=== PATIENT | male | born 1955 | race Caucasian/White ===

== ENCOUNTER 2019-01-14 09:06 | Emergency (ER) | payer MEDICARE, OTHER ==
[2019-01-14 09:14] VITALS: BP 144/97
[2019-01-14] MEDS ORDERED: Diphtheria,Pertussis(Acell),Tetanus Vaccine 0.5 ML Syringe IM ONE (09:22)
[2019-01-14] MEDS ORDERED: Lidocaine 1% 20 ML MDV INJECT ONE (09:22)
[2019-01-14] MEDS ORDERED: Lidocaine 1% 10 ML MDV ONE (09:27)
[2019-01-14] MEDS ORDERED: Lidocaine 1% 10 ML MDV INJECT ONE (09:30)
--- NOTE | 2019-01-14 09:58 | EDM.PDOC ---
ED HPI GENERAL MEDICAL PROBLEM - General Chief Complaint: Upper Extremity Injury/Pain Stated Complaint: SMASHED LT THUMB Time Seen by Provider: 01/14/19 09:15 Source of Information: Reports: Patient History Limitations: Reports: No Limitations - History of Present Illness INITIAL COMMENTS - FREE TEXT/NARRATIVE: The patient presents with left hand pain and lacerations to his thumb. 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 He has a 1cm laceration to the dorsal aspect of the left thumb and a 4cm laceration to the volar aspect of his thumb. He is right handed. He is not sure when his last tetanus was. He can move his thumb. Onset: Sudden Duration: Minutes: Location: Reports: Upper Extremity, Left (hand) Quality: Reports: Sharp Severity: Moderate Improves with: Reports: Immobilization Worsens with: Reports: Movement Context: Reports: Trauma (Crush injury to his left hand) Associated Symptoms: Reports: No Other Symptoms Left Finger-Thumb Pain Score (Numeric/FACES): 4 - Related Data Allergies Allergy/AdvReac Type Severity Reaction Status Date / Time No Known Allergies Allergy Verified 11/30/14 22:43 Home Meds: Home Meds Metoprolol Succinate [Toprol XL] 50 mg PO DAILY 03/26/14 [History] SUMAtriptan Succinate [Imitrex] 4 mg SQ ASDIRECTED 03/26/14 [History] Cephalexin [Keflex] 500 mg PO QID #28 capsule 01/14/19 [Rx] Past Medical History - Past Health History Medical/Surgical History: Denies Medical/Surgical History Cardiovascular History: Reports: Hypertension Social & Family History - Family History Family Medical History: Noncontributory - Tobacco Use Smoking Status *Q: Never Smoker - Caffeine Use Caffeine Use: Reports: Coffee - Recreational Drug Use Recreational Drug Use: No Review of Systems - Review of Systems Review Of Systems: See Below Constitutional: Reports: No Symptoms Eyes: Reports: No Symptoms Ears: Reports: No Symptoms Nose: Reports: No Symptoms Mouth/Throat: Reports: No Symptoms Respiratory: Reports: No Symptoms Cardiovascular: Reports: No Symptoms GI/Abdominal: Reports: No Symptoms Genitourinary: Reports: No Symptoms Musculoskeletal: Reports: Other (Left hand injury) ED EXAM, GENERAL - Physical Exam Exam: See Below Exam Limited By: No Limitations General Appearance: Alert, No Apparent Distress Ears: Normal External Exam Nose: Normal Inspection Head: Atraumatic, Normocephalic Neck: Carotid Bruit Respiratory/Chest: No Respiratory Distress Extremities: Other (Left hand pain upon palpation and edema to the dorsal aspect of the hand. Pain upon palpation to the left wrist. Edema and pain upon palpation to the left thumb. 1cm laceration to the dorsal aspect of the left thumb and 4cm laceration to the volar aspect of the left thumb. Good sensation distally and capillary refill.) ED TRAUMA EXTREMITY PROCEDURES - Laceration/Wound Repair Left Digit - 1st (Thumb) Lac/Wound Length In cm: 4 Appearance: Linear Distal NVT: Neuro & Vascular Intact, No Tendon Injury Anesthetic Type: Local Local Anesthesia - Lidocaine (Xylocaine): 1% Plain Skin Prep: Saline Exploration/Debridement/Repair: Wound Explored, In a Bloodless Field, Explored to Base Closed With: Sutures Suture Size: 4-0 # of Sutures: 5 Suture Type: Nylon, Interrupted, Simple Tetanus Status Addressed: Yes Complications: No Course - Vital Signs Last Recorded V/S: Last Vital Signs Temp 97.4 F 01/14/19 09:09 Pulse 72 01/14/19 09:09 Resp 18 01/14/19 09:09 BP 144/97 H 01/14/19 09:09 Pulse Ox 94 L 01/14/19 09:09 - Orders/Labs/Meds Orders: Active Orders 24 hr Category Date Time Status Vaccines to be Administered [RC] PER UNIT ROUTINE Care 01/14/19 09:22 Active Hand Comp Min 3V Lt [CR] Stat Exams 01/14/19 09:21 Taken Meds: Medications Discontinued Medications Generic Name Dose Route Start Last Admin Trade Name Luis Antonioq PRN Reason Stop Dose Admin Diphtheria/Tetanus/Acell Pertussis 0.5 ml 01/14/19 09:22 01/14/19 09:36 Adacel IM 01/14/19 09:23 0.5 ml .ONCE ONE Administration Lidocaine HCl 20 ml 01/14/19 09:22 01/14/19 09:31 Xylocaine 1% INJECT 01/14/19 09:23 Not Given ONETIME ONE Lidocaine HCl Confirm 01/14/19 09:27 01/14/19 09:31 Xylocaine 1% Administered 01/14/19 09:28 Not Given Dose 10 ml .ROUTE .STK-MED ONE Lidocaine HCl 10 ml 01/14/19 09:30 01/14/19 09:36 Xylocaine 1% INJECT 01/14/19 09:31 10 ml ONETIME ONE Administration - Re-Assessments/Exams Free Text/Narrative Re-Assessment/Exam: 01/14/19 10:04 I updated the patient's tetanus and did an x-ray. The x-ray does show a distal proximal phalynx fracture to the left thumb. This could be an open fracture with the 2 lacerations to the left thumb. I will close the wounds and splint his thumb. 01/14/19 10:35 My PA student Valdo assisted me with suturing. My nurse dressed his wound and put a velcro splint on. I will get him on some keflex and have him follow up with Dr Hampton. Departure - Departure Time of Disposition: 10:40 Disposition: Home, Self-Care 01 Condition: Good Clinical Impression: Crushing injury of left hand Qualifiers: Encounter type: initial encounter Qualified Code(s): S67.22XA - Crushing injury of left hand, initial encounter Laceration of left thumb Qualifiers: Encounter type: initial encounter Damage to nail status: without damage Foreign body presence: without foreign body Qualified Code(s): S61.012A - Laceration without foreign body of left thumb without damage to nail, initial encounter Fracture of thumb, left, open Qualifiers: Encounter type: initial encounter Phalanx: proximal Fracture alignment: nondisplaced Qualified Code(s): S62.515B - Nondisplaced fracture of proximal phalanx of left thumb, initial encounter for open fracture - Discharge Information *PRESCRIPTION DRUG MONITORING PROGRAM REVIEWED*: Not Applicable *COPY OF PRESCRIPTION DRUG MONITORING REPORT IN PATIENT MAGALY: Not Applicable Prescriptions: Cephalexin [Keflex] 500 mg PO QID #28 capsule Referrals: PCP,None [Primary Care Provider] - Bay Hampton MD [Physician] - 1 Week Forms: ED Department Discharge Additional Instructions: Take the keflex 4 times per day for 7 days. Take tylenol or motrin for pain. Ice your thumb for 15 minutes 3 times per day for 2 days. Elevate your hand above your heart for a couple days to reduce swelling. Soak your thumb in warm soapy water 2 times per day and apply antibiotic ointment after. Have the sutures removed in 1 week. Follow up with Dr Hampton in 1 to 2 weeks. Please return if you are worse. - My Orders Last 24 Hours: My Active Orders 01/14/19 09:21 Hand Comp Min 3V Lt [CR] Stat 01/14/19 09:22 Vaccines to be Administered [RC] PER UNIT ROUTINE - Assessment/Plan Last 24 Hours: My Active Orders 01/14/19 09:21 Hand Comp Min 3V Lt [CR] Stat 01/14/19 09:22 Vaccines to be Administered [RC] PER UNIT ROUTINE ED LACERATION PROCEDURES - Laceration/Wound Repair Left Digit - 1st (Thumb) Lac/wound length in cm: 3 Appearance: Subcutaneous, Linear Distal NVT: Neuro & Vascular Intact, No Tendon Injury Anesthetic Type: Local Local Anesthesia - Lidocaine (Xylocaine): 1% Plain Skin Prep: Saline Exploration/Debridement/Repair: Wound Explored, In a Bloodless Field, Explored to Base Closed with: Sutures Suture Size: 4-0 # of Sutures: 3 Suture Type: Nylon, Interrupted, Simple Tetanus Status Addressed: Yes Complications: No
--- NOTE | 2019-01-14 16:26 | CR ---
Left hand: Four views of the left hand were obtained. Comparison: No prior hand exam. Joint spaces are fairly well preserved. Minimal deformity within the base of the distal phalanx of the second finger is seen suggesting the possibility of old injury. Lucent line is identified within the distal corner of the proximal phalanx of the thumb which likely represents an acute fracture. Bony deformity is seen at the base of the distal phalanx of the thumb likely representing old injury. Soft tissue air is noted around the thumb. Impression: 1. Findings suspicious for acute fracture involving the distal corner of the proximal phalanx of the thumb. 2. Old injuries as noted above. 3. Soft tissue air noted around the thumb. Diagnostic code #3
== END 2019-01-14 10:47 | disposition home or self-care (01) ==
LOC: JD.ED 09:06
DX: S67.22XA Crushing injury of left hand, initial encounter (principal); S62.515B Nondisplaced fracture of proximal phalanx of left thumb, initial encounter for open fracture; Z23 Encounter for immunization; I10 Essential (primary) hypertension; Z79.899 Other long term (current) drug therapy; W55.22XA Struck by cow, initial encounter; Y99.0 Civilian activity done for income or pay
CPT/HCPCS: 12002; 73130; 90471; 90700; 99283; J2001; 12001; 12011; 36415; 86803; 87340; G0433

== ENCOUNTER 2019-01-18 11:09 | Emergency (ER) | payer MEDICARE, OTHER ==
[2019-01-18 11:21] VITALS: BP 144/76
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
== END 2019-01-18 12:34 | disposition home or self-care (01) ==
LOC: JD.ED 11:09
DX: S62.515B Nondisplaced fracture of proximal phalanx of left thumb, initial encounter for open fracture (principal); I10 Essential (primary) hypertension; Z79.899 Other long term (current) drug therapy; X58.XXXA Exposure to other specified factors, initial encounter
CPT/HCPCS: 29125; 99282; 99283

== ENCOUNTER 2020-03-22 08:29 | Emergency (ER) | payer MEDICARE, OTHER ==
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
[2020-03-22] MEDS ORDERED: Diphtheria,Pertussis(Acell),Tetanus Vaccine 0.5 ML Syringe IM ONE (09:00)
--- NOTE | 2020-03-22 09:39 | CR ---
Chest: 2 views of the chest were obtained. Comparison: Prior chest x-ray of 05/12/17. Heart size is normal. Tortuous thoracic aorta is seen. Lungs are clear with no acute parenchymal change. Prior surgery is noted within both shoulders. Impression: 1. Nothing acute is appreciated on 2 view chest x-ray. Diagnostic code #2 This report was dictated in MDT
[2020-03-22 10:21] VITALS: BP 136/70; PULSE 70
== END 2020-03-22 10:23 | disposition home or self-care (01) ==
LOC: JD.ED 08:29
DX: S22.31XA Fracture of one rib, right side, initial encounter for closed fracture (principal); I10 Essential (primary) hypertension; Z79.899 Other long term (current) drug therapy; Z23 Encounter for immunization; V86.59XA Driver of other special all-terrain or other off-road motor vehicle injured in nontraffic accident, initial encounter
CPT/HCPCS: 71046; 71046-26; 90471; 90715; 93005; 99285-25

== ENCOUNTER 2022-07-03 17:25 | Inpatient (IN) | payer MEDICARE, BC ==
[2022-07-03] MEDS ORDERED: Sodium Chloride 0.9% 10 ML Syringe FLUSH PRN (19:08)
[2022-07-03] MEDS ORDERED: Morphine 2 MG/ML SYRINGE IVPUSH PRN (19:08)
[2022-07-03] MEDS ORDERED: Ondansetron 4 MG/2 ML SDV IV PRN (19:08)
[2022-07-03] MEDS ORDERED: Lactated Ringers 1,000 ML IV ONE (19:12)
[2022-07-03] MEDS ORDERED: Phenol 1.4% Oral Spray 177 ML Bottle MUCMEM PRN (19:13)
[2022-07-03] MEDS ORDERED: Ketorolac 15 MG/ML SDV IVPUSH PRN (19:14)
[2022-07-03] MEDS ORDERED: diphenhydrAMINE 50 MG/ML SDV IVPUSH PRN (19:14)
[2022-07-03] MEDS ORDERED: Benzocaine 20% Topical Spray UD MUCMEM ONE (19:51)
[2022-07-03] MEDS: Enoxaparin 40 MG/0.4 ML Syringe SUBCUT SCH (21:48)
[2022-07-03] MEDS: Benzocaine/Cetylpyridinium/Menthol Lozenge MUCMEM PRN ×2 (22:33→23:35)
[2022-07-03] MEDS: Lactated Ringers 1,000 ML IV SCH (23:36)
[2022-07-04] MEDS: Lactated Ringers 1,000 ML IV SCH ×2 (00:53→09:33)
[2022-07-04] MEDS: Enoxaparin 40 MG/0.4 ML Syringe SUBCUT SCH (08:55)
[2022-07-04 16:04] VITALS: BP 140/86; PULSE 98
== END 2022-07-04 18:50 | disposition home or self-care (01) | DRG 390 ==
LOC: JD.ED 17:25 → JD.MS 18:51
PROVIDERS: ADMIT Surgery; ATTEND Surgery
DX: K56.600 Partial intestinal obstruction, unspecified as to cause (principal); I10 Essential (primary) hypertension; Z79.899 Other long term (current) drug therapy
CPT/HCPCS: 36415; 71045; 71045-26; 74018; 74018-26; 74250; 74250-26; 80048; 83735; 85025; 99285; A9270-GY; J1650; J7120

== ENCOUNTER 2025-08-14 01:07 | Inpatient (IN) | payer MEDICARE ==
[2025-08-14] MEDS ORDERED: Sodium Chloride 0.9% 10 ML Syringe FLUSH PRN (01:25)
[2025-08-14 01:35] LABS: BASOPHILS ABSOLUTE AUTO 0.0 K/mm3 (0.0-0.2); BASOPHILS PERCENT AUTO 0.2 % (0.0-1.0); EOSINOPHILS ABSOLUTE AUTO 0.0 K/mm3 (0.0-0.4); EOSINOPHILS PERCENT AUTO 0.1 % (0.0-6.0); IMMATURE GRAN ABSOLUTE AUTO 0.13 K/mm3 (0.00-0.05); IMMATURE GRAN PERCENT AUTO 0.7 % (0.0-0.4); LYMPHOCYTES ABSOLUTE AUTO 1.1 K/mm3 (1.0-4.8); LYMPHOCYTES PERCENT AUTO 5.6 % (24.0-44.0); MEAN PLATELET VOLUME 10.1 fl (9.4-12.4); MONOCYTES ABSOLUTE AUTO 1.1 K/mm3 (0.0-0.8); MONOCYTES PERCENT AUTO 5.6 % (0.0-8.0); NEUTROPHILS ABSOLUTE AUTO 16.5 K/mm3 (1.8-7.7); NEUTROPHILS PERCENT AUTO 87.8 % (41.0-71.0); NRBC ABSOLUTE 0.00 (0.00-0.02); NRBC PERCENT 0.0 % (0.0-0.2); PLATELET COUNT,PLT 217 K/mm3 (150-400); RED BLOOD CELL COUNT 5.97 M/mm3 (4.52-5.90); WHITE BLOOD CELL COUNT,WBC 18.80 K/mm3 (3.9-11.3)
[2025-08-14] MEDS ORDERED: Naloxone 0.4 MG/ML SDV IVPUSH PRN (01:37)
[2025-08-14 02:11] LABS: APPEARANCE,URINE CLEAR (Clear); GLUCOSE,URINE NEGATIVE (Negative); OCCULT BLOOD,URINE TRACE-LYSED (Negative)
[2025-08-14 02:14] LABS: A/G RATIO 0.7 (1-2); ALANINE AMINOTRANSFERASE,ALT 55.0 U/L (16-63); ASPARTATE AMNIOTRANSFERASE,AST 19.0 U/L (15-37); BILIRUBIN TOTAL 1.3 mg/dL (0.2-1.0); BLOOD UREA NITROGEN,BUN 18.0 mg/dL (7-18); CARBON DIOXIDE,CO2 24.0 mEq/L (21-32); CHLORIDE,CL 95.0 mEq/L (98-107); CREATININE 1.1 mg/dL (0.7-1.3); EST CRCL DRUG DOSING (CG) 60.7 mL/min; ESTIMATED GFR 71.0 mL/min (>60); GLUCOSE RANDOM 137.0 mg/dL (70-99); POTASSIUM,K 4.2 mEq/L (3.5-5.1); PROTEIN TOTAL,TP 7.6 g/dl (6.4-8.2); SODIUM,NA 132.0 mEq/L (136-145)
[2025-08-14 02:17] LABS: LACTIC ACID 2.1 mmol/L (0.4-2.0)
[2025-08-14 02:26] LABS: EPITHELIAL CELLS,URINE 0-5 /hpf (0-5)
[2025-08-14] MEDS: Iopamidol 612 MG/ML 100 ML Bottle IVPUSH ONE (02:59)
[2025-08-14] MEDS ORDERED: Ondansetron 4 MG/2 ML SDV IV PRN (03:57)
[2025-08-14] MEDS: Metoprolol Tartrate 5 MG/5 ML SDV IVPUSH ONE (08:16)
[2025-08-14 08:17] LABS: TSH 2.285 uIU/mL (0.358-3.74)
[2025-08-14] MEDS: Metoprolol Tartrate 5 MG/5 ML SDV ONE (08:27)
[2025-08-14] MEDS: Metoprolol Tartrate 5 MG/5 ML SDV IVPUSH PRN (11:21)
[2025-08-14 11:53] VITALS: PULSE 118
[2025-08-14 12:50] VITALS: BP 122/84
== END 2025-08-14 13:00 | DRG 872 ==
LOC: JD.ED 01:07 → JD.MS 03:57
PROVIDERS: ADMIT Family Medicine; ATTEND Surgery
DX: A41.9 Sepsis, unspecified organism (principal); K81.0 Acute cholecystitis; E87.20 Acidosis, unspecified; N39.0 Urinary tract infection, site not specified; G43.909 Migraine, unspecified, not intractable, without status migrainosus; R65.20 Severe sepsis without septic shock; I10 Essential (primary) hypertension; E86.0 Dehydration; I48.91 Unspecified atrial fibrillation; Z98.890 Other specified postprocedural states; Z87.891 Personal history of nicotine dependence; Z79.899 Other long term (current) drug therapy; Z79.52 Long term (current) use of systemic steroids
CPT/HCPCS: 36415; 74177; 76705; 80053; 81001; 83605; 83690; 83735; 84443; 84484; 85025; 87040 ×2; 93005; 96365; 96375; 96376; 99285; J2543; J7030; Q9967; 93010; 99235; A9270-GY; J1171; J2270; J3490